=== PATIENT | male | born 1980 | race Caucasian/White ===

== ENCOUNTER 2024-07-01 17:55 | Emergency (ER) | payer BC ==
[2024-07-01] MEDS ORDERED: traMADol 50 MG Tab PO ONE (17:56)
[2024-07-01 18:29] LABS: HEMATOCRIT 48.8 % (38.3-50.1); HEMOGLOBIN 17.4 g/dL (12.9-17.7); MEAN CORPUSCULAR HEMOGLOBIN 33.2 pg (27.0-33.3); MEAN CORPUSCULAR HGB CONC 35.5 g/dL (28.7-35.3); MEAN CORPUSCULAR VOLUME 93.3 fL (80.8-98.7); MEAN PLATELET VOLUME 6.8 fL (6.7-11.0); PLATELET COUNT,PLT 369 x10(3)uL (117-477); RED BLOOD CELL COUNT 5.23 x10(6)uL (3.90-5.90); RED CELL DISTRIBUTION WIDTH 12.8 % (12.4-15.0); WHITE BLOOD CELL COUNT,WBC 12.7 x10-3/uL (3.2-10.1)
[2024-07-01] MEDS: Labetalol 20 MG/4 ML Syringe IVPUSH ONE ×2 (18:29→18:43)
[2024-07-01 18:33] LABS: BLOOD UREA NITROGEN,BUN 10 mg/dL (7-18); BUN/CREATININE RATIO 8.3 (9-20); CALCIUM 8.8 mg/dL (8.6-10.2); CARBON DIOXIDE,CO2 26 mmol/L (21-32); CHLORIDE,CL 91 mmol/L (100-110); CREATININE 1.2 mg/dL (0.70-1.30); EST CRCL DRUG DOSING (CG) 75.21 mL/min; ESTIMATED GFR 76 mL/min (>60); GLUCOSE RANDOM 148 mg/dL (80-116); POTASSIUM,K 3.8 mmol/L (3.5-5.3); SODIUM,NA 129 mmol/L (135-145)
[2024-07-01 18:39] LABS: ALANINE AMINOTRANSFERASE,ALT 41 U/L (12-36); ALBUMIN 4.2 g/dL (3.5-5.2); ALKALINE PHOSPHATASE 85 IU/L (56-112); ASPARTATE AMNIOTRANSFERASE,AST 25 IU/L (5-25); BILIRUBIN TOTAL 0.7 mg/dL (0.1-1.3); PROTEIN TOTAL,TP 8.3 g/dL (6.0-8.0)
[2024-07-01 18:45] LABS: C-REACTIVE PROTEIN < 0.50 mg/dL (<0.50); TROPONIN I < 4.0 pg/mL (4.0-60.3)
[2024-07-01 18:51] LABS: LYMPHOCYTES PERCENT MAN 5 % (13-37); MONOCYTES PERCENT MAN 1 % (4-12); SEG NEUTROPHILS PERCENT MAN 94 % (46-82)
[2024-07-01] MEDS: Ketorolac 30 MG/ML SDV IVPUSH ONE (19:21)
[2024-07-01] MEDS: Sodium Chloride 0.9% 10 ML Syringe FLUSH PRN (19:27)
== END 2024-07-01 20:40 | disposition home or self-care (01) ==
LOC: FB.ED 17:55
DX: R07.89 Other chest pain (principal); I16.0 Hypertensive urgency; I10 Essential (primary) hypertension; Z90.49 Acquired absence of other specified parts of digestive tract
CPT/HCPCS: 36415; 71045; 80053; 84484; 85025; 85379; 86140; 93005; 96374; 96375; 99285; A9270; J1885; J1920